=== PATIENT | female | born 1960 | race Hispanic/Latino ===

== ENCOUNTER → 2018-12-07 | Outpatient (CLI) | payer BC ==
[~2018-12-07] MED LIST: COQ-10100 MG PO; FAMOTIDINE20 MG PO; OMEPRAZOLE40 MG PO; SIMVASTATIN40 MG PO
--- NOTE | 2018-12-07 18:17 | Diagnostic Imaging Report ---
Examination: MRI SPINE LUMBAR WO CONTRAST History: Low back pain with left hip pain. Left lumbar radiculopathy. Comparison studies: None Technique: Sagittal, coronal and axial T2 , sagittal T1 and STIR; axial spin density oblique. Findings: Number of lumbar vertebral bodies: Five. Alignment: Normal lordosis. No scoliosis. Soft tissues: No T2 hyperintense inflammatory changes. Posterior paraspinal soft tissues and muscles: No abnormality. Lower thoracic cord: Normal in signal and morphology. The tip of the conus is at T12-L1. Cauda equina: No masses. No arachnoiditis. Vertebrae: No fractures, infection or neoplasm. Degenerative changes: L1-L2: No abnormalities. L2-L3: No abnormalities. L3-L4: Mild diffuse disc bulge. No foraminal or canal stenosis. L4-L5: Mild diffuse disc bulge and mild bilateral facet arthropathy. No canal or foraminal stenosis. L5-S1: Mild diffuse disc bulge and moderate bilateral facet arthropathy result in mild bilateral neural foraminal narrowing. No canal stenosis. IMPRESSION: Degenerative changes from L3-L4 through L5-S1 without canal or significant (not moderate or severe) foraminal stenosis. Signed by: Dr. Michelle Newton M.D. on 12/07/2018 6:14 PM
--- NOTE | 2018-12-08 08:43 | Diagnostic Imaging Report ---
TECHNIQUE: Magnetic resonance imaging of the RIGHT HIP was performed WITHOUT injected contrast. HISTORY: Hip pain, 6 months COMPARISON: None available. FINDINGS: Bone: The bone marrow signal is heterogeneous, compatible with red marrow conversion, no specific evidence of a focal bone marrow replacing abnormality. No osteonecrosis or acute fracture. Femoroacetabular Joint: Acetabular labrum: Mild degenerative fraying and attenuation of the anterosuperior labrum, without a discrete labral detachment. Articular Cartilage: Low-grade erosion of the weightbearing cartilage. Muscle and tendons: Mild intrasubstance degeneration of the gluteus minimus and medius tendons near the greater trochanteric insertion with trace adjacent fluid and edema. Mild intrasubstance degeneration of the proximal hamstring tendons near the ischial tuberosity enthesis. Soft tissues: Otherwise, unremarkable. Other: Mild degenerative changes of the pubic symphysis. IMPRESSION: 1. Mild right gluteus medius and minimus tendinosis, greater trochanteric enthesopathy, and trace greater trochanteric bursitis. 2. Minimal degenerative changes of the right hip joint, including the anterosuperior labrum. Signed by: Dr. Brad Rhodes D.O., M.M.M. on 12/08/2018 8:39 AM
--- NOTE | 2018-12-08 08:43 | Diagnostic Imaging Report ---
TECHNIQUE: Magnetic resonance imaging of the LEFT HIP was performed WITHOUT injected contrast. HISTORY: Hip pain, 6 months COMPARISON: None available. FINDINGS: Bone: The bone marrow signal is heterogeneous, compatible with red marrow conversion, no specific evidence of a focal bone marrow replacing abnormality. No osteonecrosis or acute fracture. Femoroacetabular Joint: Trace nonspecific effusion. Acetabular labrum: Minimal degenerative fraying and attenuation of the anterosuperior labrum, without a discrete labral detachment. Articular Cartilage: Low-grade erosion of the weightbearing cartilage. Muscle and tendons: Minimal intrasubstance degeneration of the gluteus minimus and medius tendons near the greater trochanteric insertion with trace adjacent edema. Mild intrasubstance degeneration of the proximal hamstring tendons near the ischial tuberosity enthesis. Soft tissues: Otherwise, unremarkable. Other: Mild degenerative changes of the pubic symphysis. IMPRESSION: 1. Minimal left gluteus medius and minimus tendinosis and greater trochanteric enthesopathy. 2. Minimal degenerative changes of the left hip joint, including the anterosuperior labrum. Trace effusion, likely reactive. Signed by: Dr. Brad Rhodes D.O., M.M.M. on 12/08/2018 8:40 AM
== END ==
LOC: MRI 12:34
PROVIDERS: ATTEND Specialist
DX: M54.5 Low back pain (principal); M16.0 Bilateral primary osteoarthritis of hip
CPT/HCPCS: 72148

== ENCOUNTER → 2020-02-03 | Outpatient (CLI) | payer BC ==
--- NOTE | 2020-02-03 17:35 | Diagnostic Imaging Report ---
EXAM: CT Abdomen and Pelvis WITHOUT contrast INDICATION: KIDNEY STONES COMPARISON: None. TECHNIQUE: Abdomen and pelvis were scanned utilizing a multidetector helical scanner from the lung base to the pubic symphysis without administration of IV contrast. Absence of intravenous contrast decreases sensitivity for detection of focal lesions and vascular pathology. Coronal and sagittal reformations were obtained. Routine protocol was performed. IV CONTRAST: None ORAL CONTRAST: None COMPLICATIONS: None RADIATION DOSE: Total DLP: 694 mGy*cm Estimated effective dose: (DLP x 0.015 x size factor) mSv CTDIvol has been reviewed. It is below the limits set by the Radiation Protocol Committee (RPC). Dose modulation, iterative reconstruction, and/or weight based adjustment of the mA/kV was utilized to reduce the radiation dose to as low as reasonably achievable. FINDINGS: LINES and TUBES: None. LOWER THORAX: Subtle subpleural groundglass opacities in the bilateral lung bases. HEPATOBILIARY: No focal hepatic lesions. No biliary ductal dilation. GALLBLADDER: No radio-opaque stones or sludge. No wall thickening. SPLEEN: No splenomegaly. PANCREAS: No focal masses or ductal dilatation. ADRENALS: No adrenal nodules KIDNEYS/URETERS: No hydronephrosis. No cystic or solid mass lesions. No stones. GI TRACT: No abnormal distention, wall thickening, or evidence of bowel obstruction. Appendix is normal. PELVIC ORGANS/BLADDER: Unremarkable. LYMPH NODES: No lymphadenopathy. VESSELS: Unremarkable. PERITONEUM / RETROPERITONEUM: No free air or fluid. BONES: There are mild degenerative changes in the spine. SOFT TISSUES: Unremarkable. IMPRESSION: 1. No acute abdominopelvic abnormality identified. Specifically, no obstructive renal or ureteral stones bilaterally. 2. Subtle subpleural groundglass opacities in the bilateral lung bases which may represent atelectasis and or developing multifocal pneumonia in the proper clinical context. Signed by: Severiano Mancia MD on 02/03/2020 5:32 PM
--- NOTE | 2020-02-06 08:24 | Diagnostic Imaging Report ---
EXAM: BONE MINERAL DENSITY HISTORY: Osteoporosis COMPARISON: None DISCUSSION: Evaluation of the left hip and lumbar spine was performed utilizing DEXA Hologic bone densitometer. The study is technically adequate. The patient's fracture risk is compared to an age-matched control. The patient denies prior surgery/fracture of the spine, hips or forearm. Left hip femoral neck bone mineral density: 0.734 g/cm2, T-score is -1.2, Z-score is 0.1. Left hip total bone mineral density: 0.852 g/cm2, T-score is -0.8, Z-score is 0.1. Lumbar spine total bone mineral density: 0.936 gm/cm2, T-score is -1, Z-score is 0.4. Impression: Bone mineralization by WHO Classification is osteopenia, the fracture risk is increased. World Health Organization Fracture Risk Assessment Tool estimates 10 year fracture risk of 3.6% for major osteoporotic fracture and 0.2% for hip fracture. Fracture probability calculated for an untreated patient and probability may be lower if patient has received treatment. Signed by: Dr. Garcia Melendez M.D. on 02/06/2020 8:21 AM
== END ==
LOC: DX 16:05
PROVIDERS: ATTEND Specialist
DX: Z12.31 Encounter for screening mammogram for malignant neoplasm of breast (principal); Z13.820 Encounter for screening for osteoporosis; M85.88 Other specified disorders of bone density and structure, other site; N20.0 Calculus of kidney; R91.8 Other nonspecific abnormal finding of lung field
CPT/HCPCS: 74176; 77067; 77080

== ENCOUNTER 2022-05-18 14:04 | Emergency (ER) | payer BC, OTHER ==
[~2022-05-18] VITALS: Ht 152.4 cm; Wt 86.2 kg
[2022-05-18] MEDS ORDERED: FAMOTIDINE 20 MG TAB PO STA (15:11)
[2022-05-18] MEDS ORDERED: METOCLOPRAMIDE HCL 10 MG/2ML VIAL IM STA (15:11)
[2022-05-18] MEDS ORDERED: METOCLOPRAMIDE HCL 10 MG TAB ONE (15:38)
[2022-05-18] MEDS ORDERED: FIORICET 50-301 EACH PO (18:07)
[2022-05-18] MEDS ORDERED: PEPCID20 MG PO (18:07)
== END 2022-05-18 18:06 | disposition home or self-care (01) ==
LOC: ER 15:12
DX: R51.9 Headache, unspecified (principal); R10.13 Epigastric pain; I10 Essential (primary) hypertension; Z88.2 Allergy status to sulfonamides; Z79.899 Other long term (current) drug therapy
CPT/HCPCS: 70450; 74176; 93005; 99283; J2765; J8597